=== PATIENT | male | born 1980 | race Two or more races ===

== ENCOUNTER → 2016-08-23 | Outpatient (CLI) | payer OTHER ==
--- NOTE | 2016-08-23 20:13 | P.PN ---
Subjective This is follow-up visit for this patient with a history of severe and chronic low back pain secondary to lumbar herniated disc disease lumbar degenerative disc disease we have done interventional pain management injection, 3 lumbar epidural steroid injection and patient continued to have low back pain after the epidural steroid injection, and later on we did diagnostic medial branch block lumbar area x1 which was done in January 2016, visual was not seen since that time , he did not follow up in our clinic, patient came today to his appointment, and he was asking for pain medication, and he reported that he used marijuana, I have C discussion with the patient about the risk of combining them marijuana cholesterol. And I explained to him that I cannot give him any prescription for.opioid because he used marijuana, and patient's reported that he is not interested in having any pain management interventions, and he reported that he is already done physical therapy without any benefit, and he reported that he already seen a surgeon and he told him he is not a surgical candidate, for this reason I told the patient I cannot see him in the future because , cause of his history of marijuana use, and patient will be discharged from the clinic, Objective - Vital Signs Vital signs: Vital Signs Temp 97.7 F 08/23/16 14:44 Pulse 108 H 08/23/16 14:44 Resp 16 08/23/16 14:44 BP 139/82 08/23/16 14:44 Pulse Ox 98 08/23/16 14:44 Intake & Output 08/23/16 08/23/16 08/24/16 06:59 18:59 06:59 Weight 115.666 kg
== END | disposition home or self-care (01) ==
CPT/HCPCS: 99211

== ENCOUNTER → 2017-10-19 | Outpatient (CLI) | payer OTHER ==
--- NOTE | 2017-10-19 20:35 | CONS ---
CONSULTATION DATE OF SERVICE: 10/19/2017 36-year-old gentleman has been evaluated in the sleep center for a problem with his sleep, which included difficulties to initiate sleep and multiple awakenings from sleep. HISTORY OF PRESENT ILLNESS/SLEEP WAKE EVALUATION: The patient goes to bed around 10:30, but has difficulties to fall asleep and falling asleep around 2 and he sleeps until 8 to 10 a.m. He does have a TV set in bedroom. He usually sleeps on the side position by himself with symptoms of restless legs. He is taking ropinirole at bedtime. Multiple awakenings from sleep up to 5 times with up to 4 episodes of nocturia. In the morning patient wakes up tired, has difficulties to pay attention, worries about his sleep, has problem with memory, concentration, anxiety, claustrophobia. PAST MEDICAL HISTORY: Positive for diabetes mellitus, hyperlipidemia, ADD, multiple osteochondromas of his bones. Back problems. PAST SURGICAL HISTORY: Osteochondromas have been removed in the area from right knee and left hip. MEDICATIONS: , Metformin, Glyburide, diazepam, ropinirole, gabapentin, , simvastatin, hydroxyzine, methocarbamol, Percocet. REVIEW OF SYSTEMS: Difficulties to initiate sleep, multiple awakenings from sleep, tiredness and sleepiness during the day. Back pain. FAMILY HISTORY: Hypertension, heart problems, hyperlipidemia, stroke, fibromyalgia, arthritis, asthma, back problems, emphysema, sleep apnea, snoring, headaches, cancer, insomnia, narcolepsy, diabetes, nasal polyps, thyroid problems, restless legs. PHYSICAL EXAM: GENERAL A 36-year-old gentleman without distress. VITAL SIGNS BP 136/78, HR 110, RR 16, height 5 feet 10 inches, weight 257, BMI 36, temperature 97.3, oxygen saturation room air 100%. HEENT PERRLA, EOMI, evaluation of oropharynx showed extremely low position of soft palate. Mallampati IV. NECK Wide neck is 17-3/4 inches in circumference. LUNGS Clear to percussion and to auscultation. Good air exchange. No wheezing or rhonchi. HEART S1, S2 regular. No murmurs, gallops, or rubs. ABDOMEN Obese. Soft and nontender. Bowel sounds are present. No organomegaly appreciated. EXTREMITIES No clubbing or cyanosis. DEMO COORDINATOR Awake, alert, and oriented X3. Cranial nerves 2 to 7 intact. There is no fasciculation or atrophy. noted. No focal deficits observed. IMPRESSION: 1. Multiple awakenings from sleep, extremely low position of soft palate, Mallampati IV, wide neck, obesity, obstructive sleep apnea-hypopnea syndrome. 2. History of restless legs syndrome with difficulties to initiate sleep. 3. Anxiety. 4. Insomnia secondary to anxiety, restless legs, and also possibly psychophysiological. 5. History of attention deficit disorder. 6. Hyperlipidemia. 7. History of multiple osteochondromas, status post surgical removal of 3 osteochondromas from left knee area and from right low hip area. 8. Back problems. PLAN: 1. Polysomnography for evaluation of patient's breathing during sleep. 2. CPAP/BiPAP titration if sleep study confirms obstructive sleep apnea-hypopnea syndrome. 3. Preferable position during sleep on the side. 4. No driving if patient feels any sleepiness. Patient is aware of civil and criminal liability for unsafe driving. 5. I will see patient for follow up visit to explain results of testing and following plan. 6. Psychological techniques for treatment of insomnia should include stimulus control, paradoxical intention, worry time, exposure to as much as possible bright light in the morning for possible sleep delay syndrome also. Thank you very much for referring this patient for consultation. Sincerely, Kyrie Jimenes MD, PhD, FAASM Diplomat of [employer] [employer] Teacher of [facility] MMODL / IJN: [id number] /
== END ==
LOC: SLEEP 14:46
PROVIDERS: ATTEND Internal Medicine
DX: G47.33 Obstructive sleep apnea (adult) (pediatric) (principal); E66.9 Obesity, unspecified; F41.9 Anxiety disorder, unspecified; G47.00 Insomnia, unspecified; E78.5 Hyperlipidemia, unspecified; M79.89 Other specified soft tissue disorders; Z87.09 Personal history of other diseases of the respiratory system; Z86.69 Personal history of other diseases of the nervous system and sense organs; Z87.39 Personal history of other diseases of the musculoskeletal system and connective tissue; Z79.84 Long term (current) use of oral hypoglycemic drugs; Z79.2 Long term (current) use of antibiotics; Z79.899 Other long term (current) drug therapy; Z79.891 Long term (current) use of opiate analgesic
CPT/HCPCS: 99211

== ENCOUNTER → 2018-05-10 | Outpatient (CLI) | payer OTHER ==
--- NOTE | 2018-05-10 16:58 | PN ---
PROGRESS NOTE DATE OF SERVICE: 05/10/2018 87-year-old gentleman has been followed in the Sleep Center for discussing the results of the sleep study and following plan. I discussed results of the sleep studies with patient in detail. Sleep study did not show any significant respiratory abnormalities. Apnea-hypopnea index only 0.4, lowest oxygen level 89.6. At the same time, sleep study showed 41.3 periodic limb movements per hour with 16.9 microarousals per hour which could be could be the reason for patient's sleep issues. [place] Sleepiness Scale today is 4. PHYSICAL EXAM: Patient in no distress. BP 146/80, HR 110, RR 16, temperature 97.8, oxygen saturation on room air 99%. Oropharynx low position of soft palate. HEART: S1, S2. Tachycardia. Neck Supple, no JVD. Thyroid is not palpable. LUNGS Clear to percussion and to auscultation. Good air exchange. No wheezing or rhonchi. ABDOMEN Soft and nontender. Bowel sounds are present. No organomegaly appreciated. EXTREMITIES No clubbing or cyanosis. INTEGRITY ANALYST Awake, alert, and oriented X3. Cranial nerves 2 to 7 intact. There is no fasciculation or atrophy. noted. No focal deficits observed. IMPRESSION: 1. No significant respiratory abnormalities during the sleep. 2. Moderate periodic limb movements during sleep with significant amount of microarousals have been documented during the sleep study. 3. History of anxiety. 4. History of attention-deficit disorder. 5. Hyperlipidemia. 6. History of multiple osteochondromas. 7. Back problems. PLAN: 1. Sleep hygiene with regular time in bed for at least 8 hours. 2. No driving if feeling sleepiness. 3. Losing weight. 4. Please check iron profile including ferritin level. Low level of iron may increase risk for periodic limb movements. 5. The patient will continue to take treatment with dopamine agonists for periodic limb movements. Patient taking ropinirole during the day, and at night time. Thank you very much for allowing me to participate in management of your patient. Sincerely, Kyrie Jimenes MD, PhD, FAASM Diplomat of [employer] Director of [facility] [place] MMODL / IJN: [id number] /
== END | disposition home or self-care (01) ==
LOC: SLEEP 14:54
PROVIDERS: ATTEND Internal Medicine
DX: G47.61 Periodic limb movement disorder (principal); F41.9 Anxiety disorder, unspecified; E78.5 Hyperlipidemia, unspecified; M53.9 Dorsopathy, unspecified; Z86.018 Personal history of other benign neoplasm; Z86.59 Personal history of other mental and behavioral disorders; Z79.899 Other long term (current) drug therapy